=== PATIENT | male | born 1960 | race Caucasian/White ===

== ENCOUNTER 2019-02-17 09:48 | Emergency (ER) | payer OTHER ==
[2019-02-17] MEDS ORDERED: Lidocaine 1% 20 ML MDV INJECT ONE (11:00)
[2019-02-17] MEDS ORDERED: Bacitracin Oint 1 GM U/D Packet TOP ONE (11:01)
--- NOTE | 2019-02-17 11:36 | EDM.PDOC ---
ED HPI GENERAL MEDICAL PROBLEM - General Chief Complaint: Laceration Stated Complaint: CUT ON LEFT THUMB Time Seen by Provider: 02/17/19 10:50 Source of Information: Reports: Patient History Limitations: Reports: No Limitations - History of Present Illness INITIAL COMMENTS - FREE TEXT/NARRATIVE: pt was lifting a heavy table and it slipped and he ended up with a 2 inch laceration on the inner aspect of the left thumb. Onset: Today, Sudden Duration: Hour(s): Location: Reports: Upper Extremity, Left Associated Symptoms: Reports: No Other Symptoms - Related Data Allergies Allergy/AdvReac Type Severity Reaction Status Date / Time oxycodone [From OxyContin] Allergy Vomiting Verified 02/17/19 10:58 Home Meds: Home Meds NK [No Known Home Meds] 02/17/19 [History] Past Medical History - Past Surgical History Musculoskeletal Surgical History: Reports: Arthroscopic Knee, Arthroscopic Procedure Social & Family History - Tobacco Use Smoking Status *Q: Never Smoker ED ROS GENERAL - Review of Systems Review Of Systems: See Below Musculoskeletal: Reports: Other (laceration of the left thumb. ) ED EXAM, SKIN/RASH Exam: See Below Text/Narrative:: pt arrived with a 2 inch superficial laceration of the inner aspect of the left thumb. He had normal sensation and normal motion. A xray of the thumb was neg/ Exam Limited By: No Limitations General Appearance: Alert Extremities: Other ( the thumb has a 2 inch laceration on the inner aspect of the thumb. This quite ragged and is superficial. ) Course - Vital Signs Last Recorded V/S: Last Vital Signs Temp 36.1 C 02/17/19 11:01 Pulse 64 02/17/19 11:01 Resp 16 02/17/19 11:01 BP 131/78 02/17/19 11:01 Pulse Ox 97 02/17/19 11:01 - Orders/Labs/Meds Orders: Active Orders 24 hr Category Date Time Status Fingers Thumb Lt FA [CR] Stat Exams 02/17/19 10:59 Taken Meds: Medications Discontinued Medications Generic Name Dose Route Start Last Admin Trade Name Freq PRN Reason Stop Dose Admin Bacitracin 1 dose 02/17/19 11:01 02/17/19 11:11 Bacitracin Oint 1 Gm TOP 02/17/19 11:02 1 dose ONETIME ONE Administration Lidocaine HCl 20 ml 02/17/19 11:00 02/17/19 11:11 Xylocaine 1% INJECT 02/17/19 11:01 20 ml ONETIME ONE Administration - Re-Assessments/Exams Free Text/Narrative Re-Assessment/Exam: 02/17/19 11:34 The area was cleansed well and infiltrated with lidocaine. It was closed in a layered fashion with 5-0 prolene and 5-0 chromic. It was dressed with bacatracin. He had his last tetanus in 2013. Departure - Departure Time of Disposition: 11:36 Disposition: Home, Self-Care 01 Condition: Fair Clinical Impression: Laceration - Discharge Information Referrals: PCP,None [Primary Care Provider] - Care Plan Goals: keep dry, no further ointments, cover with a nonstick dressing and gauze, suture removal in 7-8 days. - My Orders Last 24 Hours: My Active Orders 02/17/19 10:59 Fingers Thumb Lt FA [CR] Stat - Assessment/Plan Last 24 Hours: My Active Orders 02/17/19 10:59 Fingers Thumb Lt FA [CR] Stat
--- NOTE | 2019-02-17 11:51 | CRLCR ---
INDICATION: Trauma with pain, heavy table landed on thumb. TECHNIQUE: Four views left thumb COMPARISON: None FINDINGS: No left thumb fracture, malalignment or acute osseous abnormality is seen. An apparent soft tissue laceration involving the base of the thumb is present with no retained soft tissue foreign body seen. IMPRESSION: Apparent soft tissue laceration involving the thumb with no fracture or retained soft tissue foreign body noted. Dictated by Bryan Lawrence MD @ Feb 17 2019 11:48AM Signed by Dr. Bryan Lawrence @ Feb 17 2019 11:50AM
== END 2019-02-17 11:46 | disposition home or self-care (01) ==
LOC: JP.ED 09:48
DX: S61.012A Laceration without foreign body of left thumb without damage to nail, initial encounter (principal); Z88.8 Allergy status to other drugs, medicaments and biological substances; X50.0XXA Overexertion from strenuous movement or load, initial encounter
CPT/HCPCS: 12042; 73140; 99282; J2001

== ENCOUNTER 2019-08-12 06:32 | Day surgery (SDC) | payer OTHER ==
[2019-08-12] MEDS ORDERED: Lactated Ringers 1,000 ML IV SCH (07:00)
[2019-08-12] MEDS ORDERED: fentaNYL 100 MCG/2 ML SDV ONE (08:00)
[2019-08-12] MEDS ORDERED: Propofol 200 MG/20 ML SDV ONE ×2 (08:00→08:13)
[2019-08-12] MEDS ORDERED: Midazolam 1 MG/ML 2 ML SDV ONE (08:00)
--- NOTE | 2019-08-12 13:48 | OR ---
DATE OF PROCEDURE: 08/12/2019 SURGEON: Calos Guerrero MD PREOPERATIVE DIAGNOSES: History of ulcerative colitis and colon polyps. POSTOPERATIVE DIAGNOSES: Unremarkable colonoscopy, history of ulcerative colitis, and colon polyp. PROCEDURE: Colonoscopy to the cecum. ANESTHESIA: IV anesthesia with monitored anesthesia care. INDICATION: This 59-year-old white male is referred for a colonoscopy. He has history of ulcerative colitis and has had colon polyps removed in the past. He says the last colonoscopic exam was done about 5 years ago. I counseled him for the procedure, including risks and alternatives, and he gave his informed consent to proceed. DESCRIPTION OF PROCEDURE: The patient was placed in the left lateral decubitus position. IV anesthesia was administered by the Anesthesia Service. Time-out was held. A rectal exam was performed, which was unremarkable. The flexible video Olympus colonoscope was introduced through his anus, up his rectum, out his colon all the way to the cecum. Once the cecum was reached, the scope was slowly withdrawn, examining the mucosa throughout. No mucosal abnormalities were noted. The scope was retroflexed in the rectum with the distal rectum appearing unremarkable. The scope was straightened and removed. He tolerated the procedure well. Calos Guerrero MD /[id number]
== END 2019-08-12 09:27 | disposition home or self-care (01) ==
LOC: JP.SDS 06:32
PROVIDERS: ATTEND Surgery
DX: Z12.11 Encounter for screening for malignant neoplasm of colon (principal); N40.0 Benign prostatic hyperplasia without lower urinary tract symptoms; Z86.010 Personal history of colon polyps; Z87.19 Personal history of other diseases of the digestive system; Z88.5 Allergy status to narcotic agent
CPT/HCPCS: 45378; J2250; J2704; J3010; J7120